=== PATIENT | male | born 1975 | race Caucasian/White ===

== ENCOUNTER 2025-03-29 23:03 | Emergency (ER) | payer BC, SELFPAY ==
[2025-03-29 23:20] VITALS: BP 164/108
[2025-03-30 00:09] LABS: ALT (SGPT) 29 U/L (0-50); AST (SGOT) 41 U/L (17-59); Albumin 4.9 g/dl (3.5-5.0); Alkaline Phosphatase 99 U/L (38-126); Blood Urea Nitrogen 23 mg/dl (9-20); Calcium 9.4 mg/dl (8.4-10.2); Carbon Dioxide 25 mmol/L (22-30); Chloride 103 mmol/L (98-107); Glucose 101 mg/dl (70-99); Potassium 3.5 mmol/L (3.5-5.1); Sodium 138 mmol/L (135-145); Total Bilirubin 0.9 mg/dl (0.2-1.3); eGFR > 60.00
[2025-03-30 00:12] LABS: Troponin I < 0.012 ng/ml
[2025-03-30 01:56] VITALS: BMI 25.4
[2025-03-30 02:00] VITALS: BP 153/102
[2025-03-30 02:17] LABS: % Basophils 0.6 % (0-2); % Eosinophils 1.9 % (0-6); % Immature Granulocytes 0.2 % (0-0.5); % Lymphocytes 24.6 % (20.5-51.1); % Monocytes 9.5 % (1.7-9.3); % Neutrophils 63.2 % (42.2-75.2); Absolute Eosinophils 0.1 10^3/uL (0-0.7); Absolute Lymphocytes 1.3 10^3/uL (1.2-3.4); Absolute Monocytes 0.5 10^3/uL (0.1-0.6); Absolute Neutrophils 3.3 10^3/uL (1.4-6.5); Hematocrit 41.6 % (39.0-52.0); Hemoglobin 14.2 g/dL (13.0-18.0); Mean Corp Hgb Conc. 34.1 g/dL (33.0-37.0); Mean Corpuscular Hgb 30.5 pg (27.0-31.0); Mean Corpuscular Volume 89.3 fL (80.0-94.0); Mean Platelet Volume 9.2 fL (7.4-10.4); Nucleated Red Blood Cells % 0 % (-); Platelet Count 182 10^3/uL (130-400); Red Blood Cell Count 4.66 10^6/uL (4.70-6.10); White Blood Cell Count 5.2 10^3/uL (4.8-10.8)
[2025-03-30 02:43] LABS: Troponin I < 0.012 ng/ml
[2025-03-30 03:00] VITALS: BP 151/97
[2025-03-30 04:00] VITALS: BP 134/90
--- NOTE | 2025-03-30 04:40 | ED.GENMED ---
History of Present Illness
General
Chief Complaint: Chest Pain
Source: patient
Exam Limitations: none
Nursing documentation reviewed up to this point in time: agreed with
History of Present Illness
History of Present Illness:
This a pleasant 49-year-old male presents to the emergency department with substernal chest pain. Patient states that he was outside working in his backyard today. He started feel shaky and felt fluttering in his chest and palpitations. He wears
an [employer] Watch and he states that the highest his pulse has been is been in the low 120s. Patient reports low-grade temperature. Denies fever, chills, nausea or vomiting. Has no current chest pain or shortness of breath.
Review of Systems
Review of Systems
All Other Systems: ROS reviewed and negative except as documented in HPI and ROS
Phy Exam
General Physical Exam
General Presentation: well appearing and no apparent distress
General Skin: warm and dry
General Habitus: normal
General Mental: alert
General Hydration: appears well hydrated
ENT Exam
ENT Exam: EOMI, pharynx normal, neck supple and normocephalic
Eye Exam
Eye Exam: PERRL, cornea clear and conjunctiva normal
Cardiovascular Exam
Cardiovascular Exam: regular rate/rhythm, no edema, no murmur and normal peripheral pulses
Pulmonary Exam
Pulmonary Exam: lungs clear, no respiratory distress, no rales, no crackles, no rhonchi, no stridor, no wheezing and no cough
Gastrointestinal Exam
Gastrointestinal Exam: normal bowel sounds, non tender, soft, no organomegaly, no pulsatile mass and non distended
Neurological Exam
Neurological Exam: alert, oriented x3, no motor deficits and speech normal
Musculoskeletal Exam
Musculoskeletal Exam: full ROM and no edema
Skin Exam
Skin Exam: normal color, warm/dry, no rash and no petechia
Psychiatric Exam
Psychiatric Exam: normal mood/affect
Course
Orders/Labs/Results
Orders:
Orders
05/18/25 23:24
ECG [Electrocardiogram (*1)] Urgent
Reason for Study: Chest Pain
EKG- Treatment ONCE
03/29/25 23:40
Comprehensive Metabolic Panel Urgent
Troponin I Urgent
03/30/25 01:59
Electrocardiogram (*1) Urgent
Reason for Study: Chest Pain
03/30/25 02:00
EKG- Treatment ONCE
03/30/25 02:08
Complete Blood Count/With Diff Urgent
Comment: REDRAW
Troponin I Urgent
Abnormal Lab Results
03/29/25 03/30/25
23:40 02:08
RBC 4.66 L 10^6/uL
(4.70-6.10)
Monocytes % 9.5 H %
(1.7-9.3)
BUN 23 H mg/dl
(9-20)
Glucose 101 H mg/dl
(70-99)
03/30/25 02:08
03/29/25 23:40
Vital Signs
Initial and Last Documented VS:
Initial Vital Signs
Temp Pulse Resp BP Pulse Ox
97.8 F 104 20 164/108 98
03/29/25 23:20 03/29/25 23:20 03/29/25 23:20 03/29/25 23:20 03/29/25 23:20
Last Documented Vital Signs
Temp Pulse Resp BP Pulse Ox
97.8 F 67 14 151/97 99
03/29/25 23:20 03/30/25 03:15 03/30/25 03:15 03/30/25 03:00 03/30/25 03:15
*Pulse Oximetry
Comment: EKG shows normal sinus rhythm rate of 74 normal intervals normal axis, present.
*Factory Assembler Interpretation
Interpretation: abnormal
*Critical Care Note
Total Time (30-74mins, 75-104mins- exclusive of procedures): Not Applicable
ED Attending Note
-
Portions of this chart may have been created with voice recognition software.� Occasional wrong word or��sound alike� substitutions may have occurred due to the inherent limitations of voice recognition software.
Discharge Plan
Departure
Patient Disposition: Home (Routine Discharge)
Date of Disposition: 03/30/25
Time of Disposition: 04:43
Patient with high blood pressure during this ER visit?: Yes
Discharge Problem:
Chest palpitations
Instructions: Chest Pain DCA Follow Up, BLOOD PRESSURE
Prescriptions:
No Action
No Current Medications
0
Referrals:
Alexi Busch MD [Family Provider] -
Activity Restrictions/Additional Instructions:
Thank You for choosing [facility].
It was a pleasure meeting you and taking part in your care. We hope for your continued healing and wellness.
Please read discharge instructions in their entirety. However, they are for general education and may not describe your exact diagnosis at discharge. Information on your ER visit and medical conditions were discussed with you along with appropriate
follow up information...
If indicated, please take your medications as instructed and indicated on discharge paperwork.
Please schedule a follow up appointment as directed. Call to schedule an appointment
Please return to the emergency department with ANY change in, persisting, or worsening of symptoms. If any of your symptoms do not improve, or persist, or become more severe within 6-12 hours, please return to the emergency department for further
care.
Please return to the emergency department if you develop a headache, neck pain/stiffness, fever greater than 100.4F, chest pain, shortness of breath, persistent nausea, vomiting, slurred speech, difficulty walking, numbness/tingling, weakness, signs
of infection or any other symptoms that are worrisome to you.
If you have any questions or concerns please do not hesitate to call the Hospital at or E-mail me directly at [email or web address]
Interventions
Interventions:
*Risk Screen - Suicide Last Done: 03/29/25 23:20
*General Assessment Last Done: 03/30/25 01:58
*Neglect/Abuse Screening Last Done: 03/29/25 23:20
*ED- Fall Risk Assessment Last Done: 03/30/25 01:58
*ED COVID-19 Vaccine History Last Done: 03/30/25 01:57
ED- Cardiac Assessment Last Done: 03/30/25 02:19
Discharge Date and Time
Print Language: VINCENTIAN
== END 2025-03-30 04:50 | disposition home or self-care (01) ==
LOC: EMR 23:03
PROVIDERS: EMERGENCY PHYSICIAN Student in an Organized Health Care Education/Training Program; FAMILY PHYSICIAN Family Medicine
DX: R00.2 Palpitations (principal)
CPT/HCPCS: 99283; 80053; 84484; 85025; 93005

== ENCOUNTER 2025-08-31 06:21 | Day surgery (SDC) | payer BC, SELFPAY | END 2025-08-31 09:20 | disposition home or self-care (01) | LOC: GI 06:21 | PROVIDERS: ATTENDING PHYSICIAN Internal Medicine Gastroenterology | DX: Z12.11 Encounter for screening for malignant neoplasm of colon (principal); K64.8 Other hemorrhoids; D12.3 Benign neoplasm of transverse colon | CPT/HCPCS: 45385; 88305 ==